=== PATIENT | male | born 1960 | race Two or more races ===

== ENCOUNTER 2025-08-09 14:58 | Emergency (ER) | payer MEDICAID, SELFPAY ==
[2025-08-09] VITALS (11 sets, daily range): BP systolic 103–172; BP diastolic 69–89; PULSE 105–152; RESP 16–35; TEMP 36.8–37.6; O2SAT 86–98; BMI 28.8
--- NOTE | 2025-08-09 15:10 | EKG_ITS ---
[facility] Test Date: 2025-08-09 Pat Name: JONATHAN HULL Department: Room: - Gender: Male Personal Development Mentor: : 1960 Requested By: Carmelina Bah Order Number: [id number] Reading MD: Carmelina Bah Measurements Intervals [place] Rate: 140 P: 68 SD: 160 QRS: 88 QRSD: 89 T: 57 QT: 277 QTc: 424 Interpretive Statements SINUS TACHYCARDIA, POSSIBLE ATRIAL FLUTTER POSSIBLE RIGHT VENTRICULAR CONDUCTION DELAY [RSR (QR) IN V1/V2] ABNORMAL RHYTHM ECG No previous ECG available for comparison /store/S0/[id number]
--- NOTE | 2025-08-09 15:10 | XR_ITS ---
EXAMINATION: AP chest single view TECHNIQUE: AP upright portable chest single view Date and time: August 09, 2025, 1519 hours INDICATIONS: Shortness of breath today. FINDINGS: Normal heart size Lungs are clear. Prominent osteopenia with old left-sided rib fractures IMPRESSION: No active disease
--- NOTE | 2025-08-09 15:11 | PD.EDSOB ---
ED SOB =RME/HPI General Chief Complaint: Shortness of Breath/Dyspnea Stated Complaint: SOB, WHEEZING X 1WK Time Seen by Provider: 08/09/25 15:07 Arrival date/time: 08/09/25 14:58 65-year-old male patient with significant history of asthma, came in for evaluation regarding worsening shortness of breath, wheezing, for the last 3 days. On my initial evaluation patient was noted to be satting 88% on room air. Patient also complained of nonproductive cough. Denies any fever denies any chest pain denies any other complaints no medication was taken prior to ER visit. Related Data Previous Rx's ?Medication ?Instructions ?Recorded albuterol sulfate 90 mcg/actuation 2 inh inhalation Q6H PRN shortness 08/09/25 aerosol inhaler of breath or wheezing #8.5 grams beclomethasone dipropionate 80 1 inh inhalation BID #10.6 grams 08/09/25 mcg/actuation HFA breath activated aerosol (Qvar RediHaler) ipratropium 0.5 mg-albuterol 3 mg 3 ml inhalation Q6H PRN shortness 08/09/25 (2.5 mg base)/3 mL nebulization of breath #180 mL soln prednisone 50 mg tablet 50 mg PO QDAY #7 tabs 08/09/25 Allergies Allergy/AdvReac Type Severity Reaction Status Date / Time No Known Allergies Allergy Verified 08/09/25 15:20 Review of Systems Review of Systems Narrative Review of Systems: Review of system reviewed and within normal limits except mentioned in HPI ED Exam Narrative Physical exam: VITAL SIGNS: Reviewed. GENERAL APPEARANCE: Alert and interactive, follows commands, no acute distress, HEAD AND FACE: Non-traumatic. ENT: PERRL, pink conjunctivitis, eyelid no trauma, Mucous membrane moist. NECK: Supple, nontender, no nuchal rigidity. CHEST: No tenderness, no crepitus, no paradoxical movement, no retractions. LUNGS: Symmetric, no rales, + wheezing, no ronchi, no stridor, decreased breath sounds bilaterally. HEART: Regular rate, regular rhythm, no murmur, no gallops. ABDOMEN: Soft, positive bowel sounds, nondistended, no guarding, nontender, no rebound, no masses, RECTAL: Deferred. GENITAL: Deferred. NEUROLOGICAL: Gross motor function intact sensory function intact, Appropriate for age. MUSCULOSKELETAL: low back nontender, full range of motion. EXTREMITIES: Nontender, full range of motion. SKIN: Color pink, dry, no rash, no lacerations, no abrasions, no contusions. LYMPHATICS: Deferred. Course Quality Measures none Orders Category Date Time Status EKG (ED ONLY) *Do not use* NOW Care 08/09/25 15:10 Completed EKG (ED Only) Stat Exams 08/09/25 15:10 Draft XR chest 1V Stat Exams 08/09/25 15:10 Completed B-Type Natriuretic Peptide Stat Lab 08/09/25 15:23 Completed Blood Culture (Lab) Stat Lab 08/09/25 15:23 Received CBC [CBC] Stat Lab 08/09/25 15:09 Completed Comprehensive Metabolic Panel Stat Lab 08/09/25 15:23 Completed Lactate (Lactic Acid) Stat Lab 08/09/25 15:23 Completed Partial Thromboplastin Time Stat Lab 08/09/25 15:23 Completed Procalcitonin Stat Lab 08/09/25 15:23 Completed Troponin I Stat Lab 08/09/25 15:23 Completed VBG [Venous Blood Gas] Stat Lab 08/09/25 15:23 Completed ALBUTEROL RT 0.5ml [Proventil Rt 0.5ml] Med 08/09/25 18:11 Discontinued 2.5 mg INH X1 ONE ALBUTEROL RT 3ml [Proventil Rt 3ml] Med 08/09/25 15:08 Discontinued 10 mg INH X1 ONE Acetaminophen Ivpb [Ofirmev Inj] Med 08/09/25 16:13 Discontinued 1,000 mg in 100 ml IV X1 Albuterol/Ipratr Rt Carley [Duoneb Rt Carley] Med 08/09/25 15:08 Discontinued 3 ml INH X1 ONE Magnesium Sulfate 2 GM Ivpb [Magnesium Sulfate Ivpb] Med 08/09/25 15:25 Discontinued 2 gm in 50 ml IV X1 Sodium Chloride Rt Carley 0.9% [NS Rt Carley 0.9%] Med 08/09/25 18:11 Active 3 ml INH PRN PRN dexAMETHasone INJ [Decadron Inj] Med 08/09/25 15:08 Discontinued 10 mg IVP X1 ONE Vital Signs Vital signs: Vital Signs Temperature 98.6 F 08/09/25 14:59 Pulse Rate 152 H 08/09/25 14:59 Respiratory Rate 25 H 08/09/25 14:59 Blood Pressure 124/87 H 08/09/25 14:59 Pulse Oximetry (%) 86 L 08/09/25 14:59 Oxygen Delivery Method Room Air 08/09/25 14:59 Shortness of Breath / Dyspnea MDM Narrative MDM Narrative:: 65-year-old male patient with significant history of asthma, came in for evaluation regarding worsening shortness of breath, wheezing, for the last 3 days. On my initial evaluation patient was noted to be satting 88% on room air. Patient also complained of nonproductive cough. Denies any fever denies any chest pain denies any other complaints no medication was taken prior to ER visit. EKG showed sinus tachycardia, ventricular to 139 bpm, no ST segment elevation or depression noted. Patient's laboratory workup showed slight leukocytosis of 11.1 CMP unremarkable except for a blood glucose of 264 patient is diabetic. Chest x-ray showed no acute pathology. Patient was given Tylenol, albuterol, Decadron, magnesium, with complete resolution of wheezing, patient was able to ambulate with no recurrence of shortness of breath. Currently satting 92% on room air. Patient was able to ambulate without any recurrence of shortness of breath. Patient's heart rate was noted to be 110 prior to discharge. He told me that he is ready to go home. Patient data External records reviewed:: None Clinical information provided by:: patient and family Social determinants that could affect healthcare access:: none Patient has the following chronic illnesses:: Asthma, diabetes mellitus How is presenting disease/condition affected by chronic disease/condition?: exacerbated by Evaluation data The following diagnostics were reviewed and interpreted by me:: lab results, radiology exam(s) and EKG tracing(s) Lab and/or radiology exams considered but not ordered:: None Interpretation Summary: See above Medications / Prescriptions Medications or Prescriptions considered but not ordered:: None Medication administrations:: Medication Administration History Sodium Chloride (Sodium Chloride Rt Carley 0.9% 3 Ml Nebu) 3 ml INH PRN PRN PRN Reason: SOLN Stop: 09/08/25 18:10 Last Admin: 08/09/25 19:54 Dose: 3 ml Documented By: RENY Discontinued Medications Albuterol (Albuterol Rt 2.5 Mg/3 Ml Nebu) 10 mg INH X1 ONE Stop: 08/09/25 15:09 Last Admin: 08/09/25 15:26 Dose: 10 mg Documented By: KAREN Albuterol (Albuterol Rt 2.5 Mg/0.5 Ml Nebu) 2.5 mg INH X1 ONE Stop: 08/09/25 18:12 Last Admin: 08/09/25 19:54 Dose: 2.5 mg Documented By: RENY Albuterol/Ipratropium (Albuterol/Ipratropium (Duoneb) Rt Carley 3 Ml Nebu) 3 ml INH X1 ONE Stop: 08/09/25 15:09 Last Admin: 08/09/25 15:26 Dose: 3 ml Documented By: KAREN Dexamethasone Sodium Phosphate (Dexamethasone Sod Phos Inj 10 Mg/Ml Vial) 10 mg IVP X1 ONE Stop: 08/09/25 15:09 Last Admin: 08/09/25 15:24 Dose: 10 mg Documented By: SHANE Magnesium Sulfate (Magnesium Sulfate Ivpb) 2 gm in 50 mls @ 25 mls/hr IV X1 ONE Stop: 08/09/25 17:24 Last Infusion: 08/09/25 19:27 Dose: Infused Documented By: Admin: 08/09/25 15:29 Dose: 25 mls/hr Documented By: SHANE Acetaminophen (Ofirmev Inj) 1,000 mg in 100 mls @ 250 mls/hr IV X1 ONE Stop: 08/09/25 16:36 Last Infusion: 08/09/25 19:27 Dose: Infused Documented By: Admin: 08/09/25 16:26 Dose: 250 mls/hr Documented By: SHANE See above Consultations Consultation(s) initiated? (list below): No Diagnosis Shortness of Breath Differential Diagnosis: acute exacerbation of chronic obstructive airways disease, community acquired pneumonia and asthma with exacerbation Most likely diagnosis given after review of the tests above:: Asthma exacerbation Admission Indicated Admission indicated?: not indicated Admission Request Was there a request for admission?: No Disposition Plan Disposition Plan: Discharge Discharge Attestation Discharge Attestation: The patient and all family members were given an opportunity to ask questions and understood the discharge instructions. Discharge instructions specifically effects, indications for sooner follow up or return to the emergency department, and the expected course of current diagnosis. Patient condition: Stable Discharge Plan Plan Patient Disposition: HOME (Self Care) Discharge Disposition comment: Stable Prescriptions/Referrals Prescriptions/Med Rec: New albuterol sulfate 90 mcg/actuation HFA aerosol inhaler 2 inh inhalation Q6H PRN (Reason: shortness of breath or wheezing) Qty: 8.5 0RF ipratropium-albuterol 0.5 mg-3 mg(2.5 mg base)/3 mL solution for nebulization 3 ml inhalation Q6H PRN (Reason: shortness of breath) Qty: 180 0RF prednisone 50 mg tablet 50 mg PO QDAY Qty: 7 0RF Qvar RediHaler 80 mcg/actuation HFA aerosol breath activated 1 inh inhalation BID Qty: 10.6 0RF Rx Instructions: administer with spacer Referrals: Gaby Begum PA-C [Primary Care Provider] - In 1 week Problem List Clinical Impression: Asthma with exacerbation Patient/Caregiver Discharge Instructions Discharge Activity: activity as tolerated Education Materials: Asthma Action Plan Additional Instructions: Thank you for the opportunity for serving you today. You are stable for discharged . You are advised to: Follow-up with your PCP in 1 to 2 days Return to ED for worsening of symptoms Increase oral fluids Take medication as prescribed Print Language: Citizen Of [place] Stand Alone Forms: Glenda Award Info., Patient Portal Info Letter
[2025-08-09] MEDS: ALBUTEROL RT 2.5 MG/3 ML NEBU 10 MG INH (15:26)
[2025-08-09] MEDS: ALBUTEROL/IPRATROPIUM (Duoneb) RT SOL 3 ML NEBU INH (15:26)
[2025-08-09] MEDS: Magnesium Sulfate 2 GM Ivpb 2 GM/50 ML BAG IV (15:29)
[2025-08-09 15:40] LABS: Base Excess, Venous 0 (-3-3); Lactate (Lactic Acid) 1.7 mMol/L (0.4-2.0); O2 Saturation, Venous 98 % (96-97); PCO2, Venous 51 mmHg (36-56); PO2, Venous 94 mmHg (15-58); pH, Venous 7.33 (7.33-7.66)
--- NOTE | 2025-08-09 15:44 | PC.NURSE ---
PATIENT CAME IN TO ED FOR SHORTNESS OF BREATH. PATIENT CAME IN THROUGH FRONT LOBBY. PATIENT WAS SATURATING 87% ON ROOM AIR AND RESPIRATIONS IN THE 30S. PATIENT'S FAMILY AT BEDSIDE STATES PATIENT JUST GOT BACK FROM [place]. PATIENT HAS BEEN SICK FOR THE PAST COUPLE OF DAYS. PATIENT WAS VERY WHEEZY ON ARRIVAL. PATIENT PLACED ON 15L OXYMASK. RT ARANA AT BEDSIDE PLACED PATIENT ON ORDERED BREATHING TREATMENT. PATIENT'S HEART RATE IN 140S. [facility] AND DR. GAO AT BEDSIDE.
[2025-08-09 15:47] LABS: Basophils # (Auto) 0.1 Thou/mm3 (0.0-0.2); Basophils % (Auto) 1 % (0-2.5); Eosinophils # (Auto) 0.1 Thou/mm3 (0.0-0.5); Eosinophils % (Auto) 1 % (0-10); Hematocrit 40.5 % (41.0-53.0); Hemoglobin 13.6 g/dL (13.5-16.0); Immature Granulocytes Auto 0.04 Thou/mm3 (0.00-0.00); Lymphocytes # (Auto) 0.9 Thou/mm3 (1.0-4.8); Lymphocytes % (Auto) 8 % (10-50); Mean Corpuscular HGB Conc 33.6 g/dl (31.0-37.0); Mean Corpuscular Hemoglobin 28.8 pg (25.0-35.0); Mean Corpuscular Volume 86 fL (80-100); Monocytes # (Auto) 1.0 Thou/mm3 (0.0-0.8); Monocytes % (Auto) 9 % (0-12); Neutrophils # (Auto) 8.9 Thou/mm3 (1.8-7.7); Neutrophils % (Auto) 80 % (37-80); Nucleated Red Blood Cell # 0.00 Thou/mm3 (0.00-0.00); Nucleated Red Blood Cell % 0 /100 WBC (0); Platelet Count 305 Thou/mm3 (140-440); RDW Standard Deviation 45.1 fL (35.1-43.9); Red Blood Count 4.73 Miln/mm3 (4.50-5.90); White Blood Count 11.1 Thou/mm3 (3.8-10.6)
--- NOTE | 2025-08-09 15:48 | PC.NURSE ---
PATIENT CURRENTLY 98% ON NEBULIZER TREATMENT. PATIENT STATES HE IS FEELING A LITTLE BIT BETTER. PATIENT RESPIRATIONS 25. PATIENT MADE AWARE OF PLAN OF CARE.
[2025-08-09 15:58] LABS: Partial Thromboplastin Time 26.2 Seconds (22.0-36.0)
[2025-08-09 16:19] LABS: Alanine Aminotransferase 13 U/L (10-49); Albumin, Serum 4.8 gm/dL (3.4-4.8); Albumin/Globulin Ratio 1.3 (1.2-2.2); Alkaline Phosphatase 90 U/L (46-116); Anion Gap 12 (7-16); Aspartate Amino Transferase 19 U/L (0-34); BUN/Creatinine Ratio 20 Ratio (12-20); Bilirubin,Total 0.7 mg/dL (0.3-1.2); Blood Urea Nitrogen 16 mg/dL (9-23); Calcium 9.7 mg/dL (8.3-10.6); Calcium (Corrected) 9.7 mg/dL (8.5-10.1); Carbon Dioxide 24.3 mMol/L (20.0-31.0); Chloride 100 mMol/L (98-107); Creatinine (Component) 0.8 mg/dL (0.6-1.3); Estimated Creatinine Clearance 100.9 mL/min (>60); Globulin 3.6 gm/dL (2.3-3.5); Glucose 264 mg/dL (74-106); Osmolality,Calculated 282 (275-295); Potassium 4.2 mMol/L (3.4-5.1); Procalcitonin 0.17 ng/ml (0.0-0.49); Sodium 136 mMol/L (136-145); Total Protein 8.4 gm/dL (5.7-8.2); Troponin I 0.041 ng/mL (0.0-0.045); eGFR > 60 See Note
[2025-08-09 16:23] LABS: B-Type Natriuretic Peptide < 20 pg/mL (0-100)
[2025-08-09] MEDS: ACETAMINOPHEN IVPB 1,000 MG/100 ML VIAL 250 MG IV (16:26)
[2025-08-09] MEDS: SODIUM CHLORIDE RT SOL 0.9% 3 ML NEBU INH (19:54)
[2025-08-09] MEDS: ALBUTEROL RT 2.5 MG/0.5 ML NEBU INH (19:54)
== END 2025-08-09 20:25 | disposition home or self-care (01) ==
PROVIDERS: Nurse Practitioner Family; Emergency Provider Family Medicine; PCP Physician Assistant Medical
DX: J45.901 Unspecified asthma with (acute) exacerbation (principal); R00.0 Tachycardia, unspecified
CPT/HCPCS: 36415; 71045; 80053; 82803; 83605; 83880; 84145; 84484; 85025; 85730; 87040; 93005; 94640; 94644; 96365; 96366; 99284; A9270; J0131; J1100; J3475; J7611

== ENCOUNTER 2025-08-10 06:47 | Inpatient (IN) | payer MEDICAID, SELFPAY ==
[2025-08-10] VITALS (15 sets, daily range): BP systolic 113–130; BP diastolic 74–92; PULSE 103–124; RESP 17–28; TEMP 36.6–36.9; O2SAT 93–100; BMI 24.3
--- NOTE | 2025-08-10 07:26 | EKG_ITS ---
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
--- NOTE | 2025-08-10 07:26 | XR_ITS ---
EXAMINATION: PA lateral chest 2 views TECHNIQUE: Upright PA lateral chest 2 views Date and time: August 10, 2025, 0748 hours INDICATIONS: Chest pain shortness of breath beginning 3 weeks ago FINDINGS: Normal heart size Minor scarring in the right upper lung zone No pneumonia or pulmonary edema Moderate thoracic spondylosis IMPRESSION: No pneumonia or pulmonary edema
[2025-08-10] MEDS: ALBUTEROL/IPRATROPIUM (Duoneb) RT SOL 3 ML NEBU INH ×4 (08:20→23:04)
--- NOTE | 2025-08-10 08:31 | PD.EDRME ---
Rapid Medical Screening Exam [facility] Arrival date/time: 08/10/25 06:47 This is a 65-year-old male with a history of asthma per patient. Patient was seen here yesterday for the same problem. Patient complains of shortness of breath and wheezing. Patient does have a history of diabetes. Patient's chest x-ray yesterday was unremarkable. I have greeted and performed a focused initial assessment of this patient. Initial appropriate labs ordered at this time. A comprehensive ED assessment and evaluation of the patient and analysis of all test and completion of medical decision making process will be conducted by additional ED provider. Chief Complaint: Shortness of Breath/Dyspnea Time Seen by Provider: 08/10/25 07:05 Vital signs: Vital Signs Temperature 98.4 F 08/10/25 06:54 Pulse Rate 120 H 08/10/25 06:54 Respiratory Rate 26 H 08/10/25 06:54 Blood Pressure 124/80 08/10/25 06:54 Pulse Oximetry (%) 93 L 08/10/25 06:54 Oxygen Delivery Method Room Air 08/10/25 06:54 Exam: Wheezing throughout lung kapoor, skin warm and dry Clinical Impression: Shortness of breath
[2025-08-10] MEDS: MethylPREDNISolone SOD SUCC 62.5 MG/ML 2ML VIAL 60 MG IM (08:36)
[2025-08-10 09:11] LABS: Lactate (Lactic Acid) 1.7 mMol/L (0.4-2.0)
[2025-08-10 09:21] LABS: Basophils # (Auto) 0.0 Thou/mm3 (0.0-0.2); Basophils % (Auto) 0 % (0-2.5); Eosinophils # (Auto) 0.0 Thou/mm3 (0.0-0.5); Eosinophils % (Auto) 0 % (0-10); Hematocrit 38.5 % (41.0-53.0); Hemoglobin 13.2 g/dL (13.5-16.0); Immature Granulocytes Auto 0.02 Thou/mm3 (0.00-0.00); Lymphocytes # (Auto) 0.9 Thou/mm3 (1.0-4.8); Lymphocytes % (Auto) 9 % (10-50); Mean Corpuscular HGB Conc 34.3 g/dl (31.0-37.0); Mean Corpuscular Hemoglobin 28.9 pg (25.0-35.0); Mean Corpuscular Volume 84 fL (80-100); Monocytes # (Auto) 1.1 Thou/mm3 (0.0-0.8); Monocytes % (Auto) 10 % (0-12); Neutrophils # (Auto) 8.7 Thou/mm3 (1.8-7.7); Neutrophils % (Auto) 81 % (37-80); Nucleated Red Blood Cell # 0.00 Thou/mm3 (0.00-0.00); Nucleated Red Blood Cell % 0 /100 WBC (0); Platelet Count 293 Thou/mm3 (140-440); RDW Standard Deviation 45.1 fL (35.1-43.9); Red Blood Count 4.56 Miln/mm3 (4.50-5.90); White Blood Count 10.8 Thou/mm3 (3.8-10.6)
[2025-08-10 09:33] LABS: B-Type Natriuretic Peptide 34 pg/mL (0-100)
[2025-08-10 09:40] LABS: Alanine Aminotransferase 12 U/L (10-49); Albumin, Serum 4.9 gm/dL (3.4-4.8); Albumin/Globulin Ratio 1.4 (1.2-2.2); Alkaline Phosphatase 83 U/L (46-116); Anion Gap 11 (7-16); Aspartate Amino Transferase 18 U/L (0-34); BUN/Creatinine Ratio 28 Ratio (12-20); Bilirubin,Total 0.8 mg/dL (0.3-1.2); Blood Urea Nitrogen 28 mg/dL (9-23); Calcium 10.2 mg/dL (8.3-10.6); Calcium (Corrected) 10.2 mg/dL (8.5-10.1); Carbon Dioxide 26.0 mMol/L (20.0-31.0); Chloride 101 mMol/L (98-107); Creatinine (Component) 1.0 mg/dL (0.6-1.3); Estimated Creatinine Clearance 73.2 mL/min (>60); Globulin 3.5 gm/dL (2.3-3.5); Glucose 151 mg/dL (74-106); Osmolality,Calculated 284 (275-295); Potassium 4.5 mMol/L (3.4-5.1); Procalcitonin 0.92 ng/ml (0.0-0.49); Sodium 138 mMol/L (136-145); Total Protein 8.4 gm/dL (5.7-8.2); Troponin I 0.041 ng/mL (0.0-0.045); eGFR > 60 See Note
--- NOTE | 2025-08-10 10:03 | PC.NURSE ---
brother Tevin Somersza provided contact information. pt stated to notify brother for transportation or if information is needed
[2025-08-10] MEDS: IPRATROPIUM RT 0.5 MG/ 2.5 ML NEBU INH (11:04)
[2025-08-10] MEDS: ALBUTEROL RT 2.5 MG/3 ML NEBU 7.5 MG INH (11:04)
[2025-08-10] MEDS: ACETAMINOPHEN IVPB 1,000 MG/100 ML VIAL 250 MG IV (12:46)
[2025-08-10] MEDS: Magnesium Sulfate 2 GM Ivpb 2 GM/50 ML BAG IV (12:57)
--- NOTE | 2025-08-10 13:12 | PD.EDSOB ---
ED SOB =RME/HPI General Chief Complaint: Shortness of Breath/Dyspnea Stated Complaint: SOB Time Seen by Provider: 08/10/25 07:05 Arrival date/time: 08/10/25 06:47 RME / HPI RME / HPI Narrative: 08/10/25 06:47 This is a 65-year-old male with a history of asthma per patient. Patient was seen here yesterday for the same problem. Patient complains of shortness of breath and wheezing. Patient does have a history of diabetes. Patient's chest x-ray yesterday was unremarkable. I have greeted and performed a focused initial assessment of this patient. Initial appropriate labs ordered at this time. A comprehensive ED assessment and evaluation of the patient and analysis of all test and completion of medical decision making process will be conducted by additional ED provider. DR. GAO MAIN ED EVALUATION 65 year old male with history of diabetes and asthma presents to the ED for worsening shortness of breath. Reportedly was evaluated here for similar symptoms and had improved after treatments here. States he was discharged home. However, during the night began feeling short of breath accompanied by wheezing, prompting return to ED. Denies fevers, chills, chest pain, abdominal pain, n/v. Exam: Wheezing throughout lung kapoor, skin warm and dry Impression: Shortness of breath Related Data Previous Rx's ?Medication ?Instructions ?Recorded albuterol sulfate 90 mcg/actuation 2 inh inhalation Q6H PRN shortness 08/09/25 aerosol inhaler of breath or wheezing #8.5 grams beclomethasone dipropionate 80 1 inh inhalation BID #10.6 grams 08/09/25 mcg/actuation HFA breath activated aerosol (Qvar RediHaler) ipratropium 0.5 mg-albuterol 3 mg 3 ml inhalation Q6H PRN shortness 08/09/25 (2.5 mg base)/3 mL nebulization of breath #180 mL soln prednisone 50 mg tablet 50 mg PO QDAY #7 tabs 08/09/25 Allergies Allergy/AdvReac Type Severity Reaction Status Date / Time No Known Allergies Allergy Verified 08/10/25 06:48 Review of Systems Review of Systems Systems Reviewed: All systems reviewed, normal except as documented Past Medical History Past Medical History CARDIAC: Positive Hypercholesterolemia and Hypertension RESPIRATORY: Positive Asthma ENDOCRINE: Positive Diabetes Mellitus Type 2 and Hypothyroidism Social History SMOKING STATUS: Never smoker Course Course Course Narrative: 0905h: I spoke with hospitalist team for admission. They are requesting all labs to be resulted prior to admission. 1300h: I spoke with hospitalist team for admission. Discussed patients PMHx, HPI, ED course, exam findings, labs, and radiology results. The hospitalist agree to accept the patient for admission. Quality Measures none Orders Category Date Time Status Bedside COVID-19 Antigen Test NOW Care 08/10/25 07:28 Completed Bedside COVID-19 Antigen Test NOW Care 08/10/25 09:07 Active Bedside Influenza A&B Antigen Test NOW Care 08/10/25 07:29 Completed Bedside Influenza A&B Antigen Test NOW Care 08/10/25 09:07 Completed Bedside RSV Test NOW Care 08/10/25 09:07 Completed COVID-19 Screening Questionnaire NOW Care 08/10/25 09:05 Active Social Media Senior Associate Q4H START 00 Care 08/10/25 08:29 Active Decision to Admit X1 Care 08/10/25 09:05 Completed EKG (ED ONLY) *Do not use* NOW Care 08/10/25 07:27 Completed EKG (ED Only) Stat Exams 08/10/25 07:26 Draft XR chest 2V Stat Exams 08/10/25 07:26 Completed BNP [B-Type Natriuretic Peptide] Stat Lab 08/10/25 08:56 Completed CBC Stat Lab 08/10/25 08:56 Completed Comprehensive Metabolic Panel Stat Lab 08/10/25 08:56 Completed Lactate (Lactic Acid) Stat Lab 08/10/25 08:56 Completed Procalcitonin Stat Lab 08/10/25 08:56 Completed Troponin I Stat Lab 08/10/25 08:56 Completed ALBUTEROL RT 3ml [Proventil Rt 3ml] Med 08/10/25 08:50 Discontinued 7.5 mg INH X1 ONE Acetaminophen Ivpb [Ofirmev Inj] Med 08/10/25 08:49 Discontinued 1,000 mg in 100 ml IV NOW Albuterol/Ipratr Rt Carley [Duoneb Rt Carley] Med 08/10/25 07:25 Discontinued 3 ml INH X1 ONE Ipratropium [place] Rt Carley [Atrovent Rt Carley] Med 08/10/25 08:50 Discontinued 0.5 mg INH X1 ONE Magnesium Sulfate 2 GM Ivpb [Magnesium Sulfate Ivpb] Med 08/10/25 08:50 Discontinued 2 gm in 50 ml IV X1 MethylPREDNISolone.* [SoluMEDROL Inj] Med 08/10/25 07:25 Discontinued 60 mg IM X1 ONE Vital Signs Vital signs: Vital Signs Temperature 98.4 F 08/10/25 06:54 Pulse Rate 120 H 08/10/25 06:54 Respiratory Rate 26 H 08/10/25 06:54 Blood Pressure 124/80 08/10/25 06:54 Pulse Oximetry (%) 93 L 08/10/25 06:54 Oxygen Delivery Method Room Air 08/10/25 06:54 Pulse ox is 93% on room air which is adequate. Shortness of Breath / Dyspnea Patient data External records reviewed:: [facility] previous records Clinical information provided by:: patient Social determinants that could affect healthcare access:: none Patient has the following chronic illnesses:: Asthma, diabetes How is presenting disease/condition affected by chronic disease/condition?: exacerbated by Evaluation data The following diagnostics were reviewed and interpreted by me:: lab results, radiology exam(s) and EKG tracing(s) Lab and/or radiology exams considered but not ordered:: None Interpretation Summary: Ordering Physician: Vi Rodriguez NP Date of Service: 08/10/25 Procedure(s): XR chest 2V Accession Number(s): [id number] cc: Michele Montano MD; Vi Rodriguez NP~ EXAMINATION: PA lateral chest 2 views TECHNIQUE: Upright PA lateral chest 2 views Date and time: August 10, 2025, 0748 hours INDICATIONS: Chest pain shortness of breath beginning 3 weeks ago FINDINGS: Normal heart size Minor scarring in the right upper lung zone No pneumonia or pulmonary edema Moderate thoracic spondylosis IMPRESSION: No pneumonia or pulmonary edema Dictated By: Michele Montano MD Signed By: <Electronically signed by Michele Montano MD in OV> 08/10/25 0835 Medications / Prescriptions Medications or Prescriptions considered but not ordered:: None Medication administrations:: Medication Administration History Acetaminophen (Acetaminophen 325 Mg Tablet) 650 mg PO Q6H PRN PRN Reason: Fever >100.4 or pain Stop: 09/09/25 14:20 Albuterol/Ipratropium (Albuterol/Ipratropium (Duoneb) Rt Carley 3 Ml Nebu) 3 ml INH Q4HRRT ERNESTO Stop: 09/09/25 14:59 Last Admin: 08/10/25 18:05 Dose: 3 ml Documented By: Admin: 08/10/25 16:59 Dose: 3 ml Documented By: LEONARD Albuterol/Ipratropium (Albuterol/Ipratropium (Duoneb) Rt Carley 3 Ml Nebu) 3 ml INH Q2HR PRN PRN Reason: SHORTNESS OF BREATH OR WHEEZE Stop: 09/09/25 14:20 Dextrose (Dextrose 50%-Water Inj 50 Ml Syringe) 25 ml IV Q15MIN PRN PRN Reason: BG 50-70 responsive npo pt Stop: 09/09/25 14:26 Dextrose (Dextrose 50%-Water Inj 50 Ml Syringe) 50 ml IV Q15MIN PRN PRN Reason: BG <50 OR BG <70 & pt unresponsive Stop: 09/09/25 14:26 Glucagon (Glucagon Inj 1 Mg Vial) 1 mg IM Q15MIN PRN PRN Reason: BG <70, and no IV access Heparin Sodium (Porcine) (Heparin Sod Inj 5000 Unit/Ml Vial) 5,000 unit SC Q8HR [facility] Stop: 08/24/25 21:59 Insulin Human Lispro (Insulin Lispro (Admelog) 1 Unit/0.01 Ml Unit) [address] [facility]; Protocol Stop: 09/09/25 16:59 Last Admin: 08/10/25 17:43 Dose: 3 unit Documented By: EMERSON Co-signed By: MALI Levothyroxine Sodium (Levothyroxine Sodium 25 Mcg Tablet) 75 mcg PO ACBR [facility] Stop: 09/10/25 05:59 Losartan Potassium (Losartan Potassium 25 Mg Tablet) 25 mg PO QDAY [facility] Stop: 09/10/25 08:59 Ondansetron HCl (Ondansetron Inj 2 Mg/Ml Inj 2 Ml) 4 mg IVP Q6H PRN; Protocol PRN Reason: NAUSEA OR VOMITING Stop: 09/09/25 14:20 Prednisone (Prednisone 20 Mg Tablet) 40 mg PO QDAY [facility] Stop: 08/17/25 14:26 Sennosides (Senna Tablet) 1 tab PO QDAY PRN; Protocol PRN Reason: constipation Stop: 09/09/25 14:20 Discontinued Medications Albuterol (Albuterol Rt 2.5 Mg/3 Ml Nebu) 7.5 mg INH X1 ONE Stop: 08/10/25 08:51 Last Admin: 08/10/25 11:04 Dose: 7.5 mg Documented By: LEONARD Albuterol/Ipratropium (Albuterol/Ipratropium (Duoneb) Rt Carley 3 Ml Nebu) 3 ml INH X1 ONE Stop: 08/10/25 07:26 Last Admin: 08/10/25 08:20 Dose: 3 ml Documented By: LEONARD Acetaminophen (Ofirmev Inj) 1,000 mg in 100 mls @ 250 mls/hr IV NOW ONE Stop: 08/10/25 09:12 Last Infusion: 08/10/25 15:53 Dose: Infused Documented By: Admin: 08/10/25 12:46 Dose: 250 mls/hr Documented By: VASHTI Magnesium Sulfate (Magnesium Sulfate Ivpb) 2 gm in 50 mls @ 25 mls/hr IV X1 ONE Stop: 08/10/25 10:49 Last Infusion: 08/10/25 15:53 Dose: Infused Documented By: Admin: 08/10/25 12:57 Dose: 25 mls/hr Documented By: VASHTI Ipratropium [place] (Ipratropium Rt 0.5 Mg/ 2.5 Ml Nebu) 0.5 mg INH X1 ONE Stop: 08/10/25 08:51 Last Admin: 08/10/25 11:04 Dose: 0.5 mg Documented By: LEONARD Methylprednisolone Sodium Succinate (Methylprednisolone Sod Succ 62.5 Mg/Ml 2ml Vial) 60 mg IM X1 ONE Stop: 08/10/25 07:26 Last Admin: 08/10/25 08:36 Dose: 60 mg Documented By: VL See above Consultations Consultation(s) initiated? (list below): Yes Consultation #1 (Physician, Specialty, Details): See above Diagnosis Shortness of Breath Differential Diagnosis: acute exacerbation of chronic obstructive airways disease, congestive heart failure, community acquired pneumonia and asthma with exacerbation Most likely diagnosis given after review of the tests above:: Acute asthma exacerbation Admission Indicated Admission indicated?: indicated Admission Request Was there a request for admission?: Yes Admission Attestation Admission request attestation: Discussed case with [] from Hospitalist service regarding admission. Discussed patients ED course, exam findings, labs, and radiology results. The Hospitalist [agrees,declines] to accept the patient for admission. Disposition Plan Disposition Plan: Admit Discharge Plan Plan Patient Disposition: Admit Acute Care w/in Hospital Problem List Clinical Impression: Asthma with exacerbation
--- NOTE | 2025-08-10 14:30 | ESHP_ITS ---
<Statement entered by Ethan Vasquez MD - 08/10/25 22:30> I saw and examined patient personally and supervised PGY 1 resident, Dr. Winslow with formulating a management plan. I agree with the documentation with the exceptions as listed below. Patient presented with progressively worsening wheezing and shortness of breath on minimal activity for the past week since returning from a trip to [place]. Patient attributes this to the drop in temperature. He said that 3 days ago on 08/07 he visited his primary doctor who prescribed a nebulizer machine, prednisone and a course of antibiotics [cannot remember the name]. At home he was having to use his nebulizer machine every hour without any relief. This prompted his ED visit today. He also presented on 08/09 but was discharged home after receiving DuoNebs, dexamethasone, acetaminophen IV and magnesium sulfate. Patient currently admitted for acute respiratory failure with hypoxia secondary to asthma exacerbation. On treatment with ceftriaxone, azithromycin IV and prednisone 40 mg daily. Also on DuoNebs Q6 hourly along with Pulmicort 0.25 mg twice daily. Once patient condition improves and oxygen weaned anticipate discharge within next 24 to 48 hours. Plan of care discussed with Attending Dr. Kyler Vasquez MD PGY 2 Disclaimer: This note was dictated by speech recognition. Minor errors in bilingual student tutor may be present due to voice recognition software. Documentation for date of: 08/10/25 HPI History of Present Illness Chief complaint: AHRF 2/2 asthma exacerbation History of present illness: Matt Perry 65M pmhx significant for NIDDM2, HTN, hypothyroidism and asthma who presents with shortness of breath for a week now. Patient recently returned from [place] 08/04 (where he frequents for 2 to 3 months at a time), and states that due to the very cold temperature his asthma has been worsening. He had tried his albuterol inhaler about 2 times a day without relief. Previously took Qvar however has been inconsistent has not taken for quite some time now. Does not use oxygen at baseline and usually asthma is controlled as such symptoms never happened in [place]. Denies any sick contacts, fever/chills, nausea vomiting, chest pain or productive sputum. Patient does have a cough however states that it is his baseline. Denies orthopnea, PND or bilateral leg swelling. Patient does endorse occasional left leg swelling due to sciatica. PMHx: as above Surgical Hx: none FHx: none Social Hx: denies tobacco, alcohol or recreational/illicit drug use Allergies: NKDA Medications: Glipizide 10 mg daily, levothyroxine 75 mcg daily, losartan 25 mg daily, 1 more he does not remember the name In ED, BP 124/80, HR 120, RR 26, afebrile, satting 86L RA, significant labs include WBC 10.8, hemoglobin 13.2, BUN 28, Pro-Shai 0.92. COVID, influenza A and B negative. In ED, given DuoNeb x 1, Methylpred 60 mg IM x 1, albuterol 7.5 mg x 1, ipratropium bromide 0.5 mg x 1 Tylenol 1 g x 1 and mag 2g x1. CXR negative for PNA, EKG sinus tachycardia rate 110 QTc 412. Patient was admitted for asthma exacerbation. Review of Systems Review of Systems Systems Reviewed: All systems reviewed, normal except as documented Exam Vital Signs Temp Pulse Resp BP Pulse Ox O2 Del Method O2 Flow Rate 98.5 F 124 H 22 H 114/74 98 Nasal Cannula 2 08/10/25 10:18 08/10/25 11:05 08/10/25 11:05 08/10/25 10:18 08/10/25 11:05 08/10/25 10:18 08/10/25 11:05 Narrative Exam GENERAL: AOx3, no acute distress, Malay speaking HEENT: mucous membranes moist, bilateral sclera anicteric CARDIOVASCULAR: regular rhythm, tachycardic, S1/S2 present, no murmurs appreciated PULMONARY: significant inspiratory and expiratory wheezes bilaterally ABDOMINAL: soft, non-tender, non-distended, no rebound/guarding, bowel sounds present EXTREMITIES: no peripheral edema SKIN: warm and dry, intact, no rashes NEURO: CN II-XII grossly intact, no focal deficits, alert, following commands Results: Labs 08/10/25 08:56 08/10/25 08:56 Labs: Short CBC 08/10/25 Range/Units 08:56 WBC 10.8 H (3.8-10.6) Thou/mm3 Hgb 13.2 L (13.5-16.0) g/dL Hct 38.5 L (41.0-53.0) % Plt Count 293 (140-440) Thou/mm3 [facility] 08/10/25 08:56 Sodium 138 Potassium 4.5 Chloride 101 Carbon Dioxide 26.0 BUN 28 H Creatinine 1.0 Glucose 151 H D Calcium 10.2 Cardiac Enzymes 08/10/25 Range/Units 08:56 Troponin I 0.041 (0.0-0.045) ng/mL Liver Function 08/10/25 Range/Units 08:56 Total Bilirubin 0.8 (0.3-1.2) mg/dL AST 18 (0-34) U/L ALT 12 (10-49) U/L Alkaline Phosphatase 83 (46-116) U/L Albumin 4.9 H (3.4-4.8) gm/dL Quality Measures Quality Measures VTE prophylaxis Medications Home Medications and Allergies Allergies Allergy/AdvReac Type Severity Reaction Status Date / Time No Known Allergies Allergy Verified 08/10/25 06:48 Visit Medications Acetaminophen (Acetaminophen 325 Mg Tablet) 650 mg PO Q6H PRN PRN Reason: Fever >100.4 or pain Stop: 09/09/25 14:20 Albuterol/Ipratropium (Albuterol/Ipratropium (Duoneb) Rt Carley 3 Ml Nebu) 3 ml INH Q4HRRT ANGI Stop: 09/09/25 14:59 Albuterol/Ipratropium (Albuterol/Ipratropium (Duoneb) Rt Carley 3 Ml Nebu) 3 ml INH Q2HR PRN PRN Reason: SHORTNESS OF BREATH OR WHEEZE Stop: 09/09/25 14:20 Dextrose (Dextrose 50%-Water Inj 50 Ml Syringe) 25 ml IV Q15MIN PRN PRN Reason: BG 50-70 responsive npo pt Stop: 09/09/25 14:26 Dextrose (Dextrose 50%-Water Inj 50 Ml Syringe) 50 ml IV Q15MIN PRN PRN Reason: BG <50 OR BG <70 & pt unresponsive Stop: 09/09/25 14:26 Glucagon (Glucagon Inj 1 Mg Vial) 1 mg IM Q15MIN PRN PRN Reason: BG <70, and no IV access Heparin Sodium (Porcine) (Heparin Sod Inj 5000 Unit/Ml Vial) 5,000 unit SC Q8HR ANGI Stop: 08/24/25 21:59 Insulin Human Lispro (Insulin Lispro (Admelog) 1 Unit/0.01 Ml Unit) 0 unit SC AC [facility]; Protocol Stop: 09/09/25 16:59 Levothyroxine Sodium (Levothyroxine Sodium 88 Mcg Tablet) 75 mcg PO ACBR [facility] Stop: 09/10/25 05:59 Losartan Potassium (Losartan Potassium 25 Mg Tablet) 25 mg PO QDAY [facility] Stop: 09/10/25 08:59 Ondansetron HCl (Ondansetron Inj 2 Mg/Ml Inj 2 Ml) 4 mg IVP Q6H PRN; Protocol PRN Reason: NAUSEA OR VOMITING Stop: 09/09/25 14:20 Prednisone (Prednisone 20 Mg Tablet) 40 mg PO QDAY [facility] Stop: 08/17/25 14:26 Sennosides (Senna Tablet) 1 tab PO QDAY PRN; Protocol PRN Reason: constipation Stop: 09/09/25 14:20 Discontinued Medications Albuterol (Albuterol Rt 2.5 Mg/3 Ml Nebu) 7.5 mg INH X1 ONE Stop: 08/10/25 08:51 Last Admin: 08/10/25 11:04 Dose: 7.5 mg Albuterol/Ipratropium (Albuterol/Ipratropium (Duoneb) Rt Carley 3 Ml Nebu) 3 ml INH X1 ONE Stop: 08/10/25 07:26 Last Admin: 08/10/25 08:20 Dose: 3 ml Acetaminophen (Ofirmev Inj) 1,000 mg in 100 mls @ 250 mls/hr IV NOW ONE Stop: 08/10/25 09:12 Last Admin: 08/10/25 12:46 Dose: 250 mls/hr Magnesium Sulfate (Magnesium Sulfate Ivpb) 2 gm in 50 mls @ 25 mls/hr IV X1 ONE Stop: 08/10/25 10:49 Last Admin: 08/10/25 12:57 Dose: 25 mls/hr Ipratropium [place] (Ipratropium Rt 0.5 Mg/ 2.5 Ml Nebu) 0.5 mg INH X1 ONE Stop: 08/10/25 08:51 Last Admin: 08/10/25 11:04 Dose: 0.5 mg Methylprednisolone Sodium Succinate (Methylprednisolone Sod Succ 62.5 Mg/Ml 2ml Vial) 60 mg IM X1 ONE Stop: 08/10/25 07:26 Last Admin: 08/10/25 08:36 Dose: 60 mg Assessment & Plan Plan Matt Orlando 65M pmhx significant for NIDDM2, HTN, hypothyroidism and asthma who presents to [facility] ED on 08/10 for 1 week of shortness of breath, admitted for acute asthma exacerbation. #Acute hypoxic respiratory failure 2/2 #Acute asthma exacerbation Ddx: asthma exacerbation, CAP, URI Since returning from [place] on 08/04, has had 1 week of asthma exacerbation due to the cold not alleviated by frequent albuterol administrations as well as nebulization. Previously took Qvar however not consistent. On admission, significant wheezes bilaterally. Procal 0.92. CXR neg for PNA. Plan: - DuoNeb q4h angi and q2h prn - Azithromycin 500 mg QD and ceftriaxone 1 g QD (08/10- - Prednisone 40 mg QD - Supplemental O2 as needed to keep SpO2 above 90%, wean down as tolerated #NIDDM2 No a1c on file and patient takes glipizide 10 mg QD. Plan: - SSI step 1 - CTM glucose as patient is on steroids as well #Hx of HTN Takes losartan 25 mg QD Plan: - Resume home losartan 25 mg QD #Hypothyroidism Levothyroxine 75 mcg at home. Plan: - Resume home levothyroxine 75 mcg QD. Hospital management: Lines: PIV Diet: Carb consistent Bowel: Senna prn GI prophylaxis: IV pantop 40 mg QD DVT prophylaxis: heparin 5000u q8h Disposition: tele, tx of asthma exacerbation CODE STATUS: FULL CODE Plan of care discussed with attending Dr. Chávez, and PGY-2 Dr. Vasquez. Hiral Winslow, DO PGY-1 Internal Medicine Attending Provider Attestation/Addendum I have seen and examined the patient. I was physically present for the ivey portions of the services provided including history, physical exam, diagnosis, treatment plans and orders. I agree with assessment and plan of care as documented by residents. After examination of the patient and review of the clinical data I feel that this patient needs admission to the hospital for further treatment/evaluation. Even though this this note was carefully revised there may still be minor errors in bilingual student tutor due to voice recognition software. Kyung Chávez MD
[2025-08-10] MEDS: INSULIN LISPRO (AdmeLOG) 1 UNIT/0.01 ML UNIT SC (17:43)
[2025-08-10] MEDS: cefTRIAXone/D5w 1gm IV premix 1 GM/50 ML BAG IV (18:34)
[2025-08-10] MEDS: AZITHROMYCIN INJ 500 MG in SODIUM CHLORIDE 0.9% 250 ML 250 ML 250 MG IV (19:38)
--- NOTE | 2025-08-10 21:20 | PC.NURSE ---
SBAR to Brianna RN, Pt will go up to tele
[2025-08-10] MEDS: HEPARIN SOD INJ 5000 UNIT/ML VIAL SC (22:02)
[2025-08-10 22:18] LABS: Respiratory Syncytial Virus Ag Negative (Negative)
[2025-08-11] VITALS (15 sets, daily range): BP systolic 95–123; BP diastolic 65–81; PULSE 75–120; RESP 16–20; TEMP 19.4–36.8; O2SAT 92–99; BMI 29.9
[2025-08-11] MEDS: ALBUTEROL/IPRATROPIUM (Duoneb) RT SOL 3 ML NEBU INH ×5 (02:21→23:32)
[2025-08-11] MEDS: LEVOTHYROXINE SODIUM 25 MCG TABLET 75 MCG PO (05:10)
[2025-08-11] MEDS: HEPARIN SOD INJ 5000 UNIT/ML VIAL SC ×3 (05:10→21:05)
[2025-08-11 05:58] LABS: Basophils # (Auto) 0.0 Thou/mm3 (0.0-0.2); Basophils % (Auto) 0 % (0-2.5); Eosinophils # (Auto) 0.0 Thou/mm3 (0.0-0.5); Eosinophils % (Auto) 0 % (0-10); Hematocrit 37.1 % (41.0-53.0); Hemoglobin 12.4 g/dL (13.5-16.0); Immature Granulocytes Auto 0.01 Thou/mm3 (0.00-0.00); Lymphocytes # (Auto) 1.0 Thou/mm3 (1.0-4.8); Lymphocytes % (Auto) 11 % (10-50); Mean Corpuscular HGB Conc 33.4 g/dl (31.0-37.0); Mean Corpuscular Hemoglobin 28.5 pg (25.0-35.0); Mean Corpuscular Volume 85 fL (80-100); Monocytes # (Auto) 1.1 Thou/mm3 (0.0-0.8); Monocytes % (Auto) 13 % (0-12); Neutrophils # (Auto) 6.4 Thou/mm3 (1.8-7.7); Neutrophils % (Auto) 75 % (37-80); Nucleated Red Blood Cell # 0.00 Thou/mm3 (0.00-0.00); Nucleated Red Blood Cell % 0 /100 WBC (0); Platelet Count 298 Thou/mm3 (140-440); RDW Standard Deviation 45.7 fL (35.1-43.9); Red Blood Count 4.35 Miln/mm3 (4.50-5.90); White Blood Count 8.5 Thou/mm3 (3.8-10.6)
[2025-08-11 06:37] LABS: Glucose Estimated Average 151 mg/dL (80-131); Hemoglobin A1C 6.9 % Hgb (4.8-6.0)
[2025-08-11 06:44] LABS: Alanine Aminotransferase 12 U/L (10-49); Albumin, Serum 4.5 gm/dL (3.4-4.8); Albumin/Globulin Ratio 1.4 (1.2-2.2); Alkaline Phosphatase 71 U/L (46-116); Anion Gap 8 (7-16); Aspartate Amino Transferase 18 U/L (0-34); BUN/Creatinine Ratio 28 Ratio (12-20); Bilirubin,Total 0.4 mg/dL (0.3-1.2); Blood Urea Nitrogen 22 mg/dL (9-23); Calcium 9.7 mg/dL (8.3-10.6); Calcium (Corrected) 9.7 mg/dL (8.5-10.1); Carbon Dioxide 30.1 mMol/L (20.0-31.0); Cardiac Risk Estimate 2.3 RATIO (4.0-6.7); Chloride 101 mMol/L (98-107); Cholesterol 157 mg/dL (132-200); Creatinine (Component) 0.8 mg/dL (0.6-1.3); Estimated Creatinine Clearance 77.4 mL/min (>60); Globulin 3.2 gm/dL (2.3-3.5); Glucose 183 mg/dL (74-106); HDL Cholesterol 69 mg/dL (40-60); LDL Cholesterol,Calculated 72 mg/dL (0-130); Magnesium 2.2 mg/dL (1.6-2.6); Osmolality,Calculated 285 (275-295); Potassium 4.9 mMol/L (3.4-5.1); Sodium 139 mMol/L (136-145); Thyroid Stimulating Hormone 1.95 uIU/mL (0.55-4.78); Total Protein 7.7 gm/dL (5.7-8.2); Triglycerides 78 mg/dL (30-150); eGFR > 60 See Note
[2025-08-11] MEDS: ACETAMINOPHEN 325 MG TABLET 650 MG PO (07:13)
[2025-08-11] MEDS: cefTRIAXone/D5w 1gm IV premix 1 GM/50 ML BAG IV (08:45)
[2025-08-11] MEDS: LOSARTAN POTASSIUM 25 MG TABLET PO (08:46)
[2025-08-11] MEDS: BUDESONIDE RT 0.25 MG/2 ML NEBU INH ×2 (10:11→19:10)
[2025-08-11] MEDS: guaiFENesin SYRUP 200 MG/10 ML UDC PO ×3 (11:40→20:38)
[2025-08-11] MEDS: INSULIN LISPRO (AdmeLOG) 1 UNIT/0.01 ML UNIT SC ×2 (11:41→16:56)
--- NOTE | 2025-08-11 13:29 | ESPR_ITS ---
<Statement entered by Ethan Vasquez MD - 08/11/25 16:52> I saw and examined patient personally and supervised PGY 1 resident, Dr. Winslow with formulating a management plan. I agree with the documentation as listed below. Plan of care discussed with Attending Dr. Kyler Vasquez MD PGY 2 Disclaimer: This note was dictated by speech recognition. Minor errors in manager social may be present due to voice recognition software. Documentation for date of: 08/11/25 Subjective Subjective Interval history: Overnight, patient received trazodone for sleep. Patient seen and examined at bedside with family. Niece at bedside endorses that patient has anxiety and patient requests medication, ordered hydroxyzine 25 mg x 1. Patient reports improved breathing however still slightly short of breath. VSS, saturating 96% 2 L. Labs are stable, RSV negative blood cultures negative at 24 hours, cocci pending. Continue azithromycin and ceftriaxone, prednisone, breathing treatments. Ordered guaifenesin, Acapella device and incentive spirometer. Restarted home gabapentin 600 mg 3 times daily and statin. Anticipate discharge in the next 24 to 48 hours with improvement of O2 requirement. Exam Vital Signs Temp Pulse Resp BP Pulse Ox O2 Del Method O2 Flow Rate 98.0 F 86 17 113/76 97 Nasal Cannula 2 08/11/25 12:00 08/11/25 12:00 08/11/25 12:00 08/11/25 12:00 08/11/25 12:00 08/11/25 12:00 08/11/25 12:00 Narrative Exam GENERAL: AOx3, no acute distress, Micronesian speaking HEENT: mucous membranes moist, bilateral sclera anicteric CARDIOVASCULAR: regular rhythm and rate, S1/S2 present, no murmurs appreciated PULMONARY: inspiratory and expiratory wheezes bilaterally improved ABDOMINAL: soft, non-tender, non-distended, no rebound/guarding, bowel sounds present EXTREMITIES: no peripheral edema SKIN: warm and dry, intact, no rashes NEURO: CN II-XII grossly intact, no focal deficits, alert, following commands Objective Labs 08/11/25 04:57 08/11/25 04:57 Labs: Laboratory Results - last 24 hr 08/10/25 08/11/25 21:15 04:57 WBC 8.5 RBC 4.35 L Hgb 12.4 L Hct 37.1 L MCV 85 MCH 28.5 MCHC 33.4 RDW Std Deviation 45.7 H Plt Count 298 Neut % (Auto) 75 Lymph % (Auto) 11 [place] % (Auto) 13 H Eos % (Auto) 0 Baso % (Auto) 0 Neut # (Auto) 6.4 Lymph # (Auto) 1.0 [place] # (Auto) 1.1 H Eos # (Auto) 0.0 Baso # (Auto) 0.0 Immature Gran # (Auto) 0.01 H Absolute Nucleated RBC 0.00 Immature Gran % 0 Nucleated RBC % 0 Sodium 139 Potassium 4.9 Chloride 101 Carbon Dioxide 30.1 Anion Gap 8 BUN 22 Creatinine 0.8 Estim Creat Clear Calc 77.4 eGFR > 60 BUN/Creatinine Ratio 28 H Glucose [address] Glu mg/dL 151 H Hemoglobin A1c 6.9 H Calculated Osmolality 285 Calcium 9.7 Corrected Calcium 9.7 Magnesium 2.2 Total Bilirubin 0.4 AST 18 ALT 12 Alkaline Phosphatase 71 Total Protein 7.7 Albumin 4.5 Globulin 3.2 Albumin/Globulin Ratio 1.4 Triglycerides 78 Cholesterol 157 LDL Cholesterol, Calc 72 HDL Cholesterol 69 H Cholesterol/HDL Ratio 2.3 L TSH 1.95 RSV Rapid Negative Quality Measures Quality Measures VTE prophylaxis Assessment & Plan Assessment Current Active Medications: Generic Name Dose Route Start Last Admin Trade Name Freq PRN Reason Stop Dose Admin Acetaminophen 650 mg 08/10/25 14:21 08/11/25 07:13 Acetaminophen 325 Mg Tablet PO 09/09/25 14:20 650 mg Q6H PRN Administration Fever >100.4 or pain Albuterol/Ipratropium 3 ml 08/10/25 15:00 08/11/25 10:11 Albuterol/Ipratropium (Duoneb) Rt Carley 3 Ml Nebu INH 09/09/25 14:59 3 ml Q4HRRT ANGI Administration Albuterol/Ipratropium 3 ml 08/10/25 14:21 Albuterol/Ipratropium (Duoneb) Rt Carley 3 Ml Nebu INH 09/09/25 14:20 Q2HR PRN SHORTNESS OF BREATH OR WHEEZE Atorvastatin Calcium 20 mg 08/11/25 21:00 Atorvastatin Calcium 20 Mg Tablet PO 09/10/25 20:59 HS ANGI Budesonide 0.25 mg 08/11/25 07:00 08/11/25 10:11 Budesonide Rt 0.25 Mg/2 Ml Nebu INH 09/10/25 06:59 0.25 mg BIDRT ANGI Administration Dextrose 25 ml 08/10/25 14:27 Dextrose 50%-Water Inj 50 Ml Syringe IV 09/09/25 14:26 Q15MIN PRN BG 50-70 responsive npo pt Dextrose 50 ml 08/10/25 14:27 Dextrose 50%-Water Inj 50 Ml Syringe IV 09/09/25 14:26 Q15MIN PRN BG <50 OR BG <70 & pt unresponsive Gabapentin 600 mg 08/11/25 14:00 Gabapentin 300 Mg Capsule PO 09/10/25 13:59 TID ANGI Glucagon 1 mg 08/10/25 14:27 Glucagon Inj 1 Mg Vial IM Q15MIN PRN BG <70, and no IV access Guaifenesin 200 mg 08/11/25 12:00 08/11/25 11:40 Guaifenesin Syrup 200 Mg/10 Ml Udc PO 09/10/25 11:59 200 mg QID ANGI Administration Protocol Heparin Sodium (Porcine) 5,000 unit 08/10/25 22:00 08/11/25 05:10 Heparin Sod Inj 5000 Unit/Ml Vial SC 08/24/25 21:59 5,000 unit Q8HR ANGI Administration Azithromycin 500 mg/ Sodium 250 mls @ 250 mls/hr 08/11/25 21:00 Chloride IV 08/12/25 20:59 HS ANGI Ceftriaxone Sodium/Dextrose 1 gm in 50 mls @ 100 mls/hr 08/10/25 18:11 08/11/25 08:45 Rocephin/D5w 1gm Iv Premix IV 08/17/25 18:10 100 mls/hr QDAY ANIG Administration Insulin Human Lispro 0 unit 08/10/25 17:00 08/11/25 11:41 Insulin Lispro (Admelog) 1 Unit/0.01 Ml Unit SC 09/09/25 16:59 1 unit AC ANGI Administration Protocol Levothyroxine Sodium 75 mcg 08/11/25 06:00 08/11/25 05:10 Levothyroxine Sodium 25 Mcg Tablet PO 09/10/25 05:59 75 mcg ACBR ANGI Administration Losartan Potassium 25 mg 08/11/25 09:00 08/11/25 08:46 Losartan Potassium 25 Mg Tablet PO 09/10/25 08:59 25 mg QDAY ANGI Administration Melatonin 3 mg 08/11/25 21:00 Melatonin 3 Mg Tablet PO 09/10/25 20:59 HS ANGI Ondansetron HCl 4 mg 08/10/25 14:21 Ondansetron Inj 2 Mg/Ml Inj 2 Ml IVP 09/09/25 14:20 Q6H PRN NAUSEA OR VOMITING Protocol Pantoprazole Sodium 40 mg 08/12/25 09:00 Pantoprazole 40 Mg Tablet PO 09/11/25 08:59 QDAY ANGI Prednisone 40 mg 08/11/25 09:00 08/11/25 08:46 Prednisone 20 Mg Tablet PO 08/17/25 14:26 40 mg QDAY ANGI Administration Sennosides 1 tab 08/10/25 14:21 08/11/25 11:41 Senna Tablet PO 09/09/25 14:20 1 tab QDAY PRN Administration constipation Protocol Plan Matt Perry 65M pmhx significant for NIDDM2, HTN, hypothyroidism and asthma who presents to [facility] ED on 08/10 for 1 week of shortness of breath, admitted for acute asthma exacerbation. #Acute hypoxic respiratory failure 2/ #Acute asthma exacerbation Ddx: asthma exacerbation, CAP, URI Since returning from [place] on 08/04, has had 1 week of asthma exacerbation due to the cold not alleviated by frequent albuterol administrations as well as nebulization. Previously took Qvar however not consistent. On admission, significant wheezes bilaterally. Procal 0.92. CXR neg for PNA. Plan: - DuoNeb q4h angi and q2h prn - Azithromycin 500 mg QD and ceftriaxone 1 g QD (08/10- - Prednisone 40 mg QD (08/11- - Guaifenasin, acapella device and incentive spirometer ordered - Supplemental O2 as needed to keep SpO2 above 90%, wean down as tolerated #NIDDM2 No a1c on file and patient takes glipizide 10 mg QD. Plan: - SSI step 1 - CTM glucose as patient is on steroids as well #Hx of HTN #Hx HLD Takes losartan 25 mg QD and simvastatin 40 mg hs Plan: - Resume home losartan 25 mg QD and simvastatin 40 mg hs #Hypothyroidism Levothyroxine 75 mcg at home. Plan: - Resume home levothyroxine 75 mcg QD. #L sciatica Plan: - Restarted home gabapentin 600 mg TID Hospital management: Lines: PIV Diet: Carb consistent Bowel: Senna prn GI prophylaxis: IV pantop 40 mg QD DVT prophylaxis: heparin 5000u q8h Disposition: tele, tx of asthma exacerbation CODE STATUS: FULL CODE Plan of care discussed with attending Dr. Chávez, and PGY-2 Dr. Vasquez. Hiral Winslow, DO PGY-1 Internal Medicine Attending Provider Attestation/Addendum I have seen and examined the patient. I was physically present for the ivey portions of the services provided including history, physical exam, diagnosis, treatment plans and orders. I agree with assessment and plan of care as documented by residents. Even though this this note was carefully revised there may still be minor errors in manager social due to voice recognition software. Kyung Chávez MD
[2025-08-11] MEDS: GABAPENTIN 300 MG CAPSULE 600 MG PO ×2 (14:01→21:05)
--- NOTE | 2025-08-11 15:24 | PC.SS ---
This is 65-year-old, single, male who presented to the ED due to suffering from SOB. Patient appeared alert and oriented to self, place and situation. Patient verified his address and phone number. Patient reported that he resides with different siblings. Patient is independent, no DME use. Patient does not use O2 at home. Patient assigned his brother, Tevin ([phone]) as his medical decision maker. Patient reported that his PCP is any provider at [facility]. When medically clear, patient will return to Tevin's house.
[2025-08-11 15:42] LABS: Cocci Serology, IgM Negative (Negative)
[2025-08-11] MEDS: MELATONIN 3 MG TABLET PO (20:38)
[2025-08-11] MEDS: AZITHROMYCIN INJ 500 MG in SODIUM CHLORIDE 0.9% 250 ML 250 ML 250 MG IV (20:38)
[2025-08-11] MEDS: ATORVASTATIN CALCIUM 20 MG TABLET PO (20:38)
[2025-08-12] VITALS (13 sets, daily range): BP systolic 98–130; BP diastolic 58–78; PULSE 75–101; RESP 16–21; TEMP 36.1–36.8; O2SAT 92–100
[2025-08-12] MEDS: ALBUTEROL/IPRATROPIUM (Duoneb) RT SOL 3 ML NEBU INH ×5 (03:08→20:08)
[2025-08-12] MEDS: HEPARIN SOD INJ 5000 UNIT/ML VIAL SC (05:03)
[2025-08-12] MEDS: LEVOTHYROXINE SODIUM 25 MCG TABLET 75 MCG PO (05:03)
[2025-08-12] MEDS: GABAPENTIN 300 MG CAPSULE 600 MG PO ×2 (05:03→16:36)
[2025-08-12] MEDS: guaiFENesin SYRUP 200 MG/10 ML UDC PO ×3 (05:03→16:36)
[2025-08-12 06:08] LABS: Basophils # (Auto) 0.0 Thou/mm3 (0.0-0.2); Basophils % (Auto) 0 % (0-2.5); Eosinophils # (Auto) 0.0 Thou/mm3 (0.0-0.5); Eosinophils % (Auto) 0 % (0-10); Hematocrit 36.0 % (41.0-53.0); Hemoglobin 11.6 g/dL (13.5-16.0); Immature Granulocytes Auto 0.02 Thou/mm3 (0.00-0.00); Lymphocytes # (Auto) 1.5 Thou/mm3 (1.0-4.8); Lymphocytes % (Auto) 20 % (10-50); Mean Corpuscular HGB Conc 32.2 g/dl (31.0-37.0); Mean Corpuscular Hemoglobin 28.3 pg (25.0-35.0); Mean Corpuscular Volume 88 fL (80-100); Monocytes # (Auto) 0.8 Thou/mm3 (0.0-0.8); Monocytes % (Auto) 11 % (0-12); Neutrophils # (Auto) 5.0 Thou/mm3 (1.8-7.7); Neutrophils % (Auto) 68 % (37-80); Nucleated Red Blood Cell # 0.00 Thou/mm3 (0.00-0.00); Nucleated Red Blood Cell % 0 /100 WBC (0); Platelet Count 247 Thou/mm3 (140-440); RDW Standard Deviation 47.3 fL (35.1-43.9); Red Blood Count 4.10 Miln/mm3 (4.50-5.90); White Blood Count 7.4 Thou/mm3 (3.8-10.6)
[2025-08-12] MEDS: BUDESONIDE RT 0.25 MG/2 ML NEBU INH (07:28)
[2025-08-12 07:41] LABS: Alanine Aminotransferase 13 U/L (10-49); Albumin, Serum 4.3 gm/dL (3.4-4.8); Albumin/Globulin Ratio 1.4 (1.2-2.2); Alkaline Phosphatase 70 U/L (46-116); Anion Gap 9 (7-16); Aspartate Amino Transferase 17 U/L (0-34); BUN/Creatinine Ratio 29 Ratio (12-20); Bilirubin,Total 0.3 mg/dL (0.3-1.2); Blood Urea Nitrogen 23 mg/dL (9-23); Calcium 9.4 mg/dL (8.3-10.6); Calcium (Corrected) 9.4 mg/dL (8.5-10.1); Carbon Dioxide 29.0 mMol/L (20.0-31.0); Chloride 100 mMol/L (98-107); Creatinine (Component) 0.8 mg/dL (0.6-1.3); Estimated Creatinine Clearance 77.4 mL/min (>60); Globulin 3.1 gm/dL (2.3-3.5); Glucose 174 mg/dL (74-106); Magnesium 2.1 mg/dL (1.6-2.6); Osmolality,Calculated 283 (275-295); Potassium 4.2 mMol/L (3.4-5.1); Sodium 138 mMol/L (136-145); Total Protein 7.4 gm/dL (5.7-8.2); eGFR > 60 See Note
[2025-08-12] MEDS: cefTRIAXone/D5w 1gm IV premix 1 GM/50 ML BAG IV (08:34)
[2025-08-12] MEDS: PANTOPRAZOLE 40 MG TABLET PO (08:35)
[2025-08-12] MEDS: LOSARTAN POTASSIUM 25 MG TABLET PO (08:35)
--- NOTE | 2025-08-12 09:43 | XR_ITS ---
EXAMINATION: AP chest single view TECHNIQUE: AP portable upright chest single view Date and time: August 12, 2025, 10:14 a.m., comparison August 10, 2025 INDICATIONS: Shortness of breath respiratory distress today. FINDINGS: Normal heart size Moderate vascular congestion. Accentuation of the bronchovascular markings. No lobar pneumonia Prominent osteopenia IMPRESSION: Significant accentuation of the bronchovascular markings, consider bronchitis
[2025-08-12] MEDS: INSULIN LISPRO (AdmeLOG) 1 UNIT/0.01 ML UNIT SC ×2 (11:52→16:36)
--- NOTE | 2025-08-12 14:03 | PC.NURSE ---
Pt ambulated without oxygen and stayed at 88% on RA during ambulation pt placed back on O2 and sat down in room due to c/o shortnerss of breath
--- NOTE | 2025-08-12 15:31 | PC.SS ---
SS submitted DME order for O2 on [facility] pending reesponses.
--- NOTE | 2025-08-12 15:42 | PC.NURSE ---
Pt is on 3L NC o2 saturations 95%
--- NOTE | 2025-08-12 17:31 | ESDS_ITS ---
<Statement entered by Ethan Vasquez MD - 08/14/25 07:55> I saw and examined patient personally and supervised PGY 1 resident, Dr. Ordaz with formulating a discharge plan. I agree with the documentation as listed below. Plan of care discussed with Attending Dr. Kyler Vasquez MD PGY 2 Disclaimer: This note was dictated by speech recognition. Minor errors in clin application specialist may be present due to voice recognition software. Planned Discharge Date 08/12/25 DS: Providers Provider Date of admission: 08/10/25 13:31 Primary care physician: Physician No Primary/Family Admitting Provider: Kyung Chávez MD Attending Provider on Admission: yKung Chávez MD Attending Provider on DC: Edita Ordaz DO Discharging Provider: Edita Ordaz DO DS: Diagnosis Problem List Completed Was Problem List Reviewed/Reconciled?: Yes Hospital Course Hospital Course Hospital course: Matt Perry 65M pmhx significant for NIDDM2, HTN, hypothyroidism and asthma who presents to [facility] ED on 08/10 for 1 week of shortness of breath, admitted for acute asthma exacerbation. Patient reported that since returning from [place] on 08/04, patient had 1 week of asthma exacerbation due to the cold not alleviated by frequent albuterol administrations as well as nebulization which were recommended by his PCP. Previously took Qvar however not consistent. On admission, significant wheezes bilaterally. Procal 0.92. CXR neg for PNA. Patient was admitted for acute respiratory failure with hypoxia secondary to asthma exacerbation. EKG showed sinus tachycardia. Chest x-ray revealed significant accentuation of the bronchovascular markings concerning for bronchitis. Started treatment with ceftriaxone, azithromycin, and prednisone 40 mg daily. In addition to DuoNebs every 6 hour along with Pulmicort 0.25 mg twice daily. Patient chronic issues of hypertension, hypothyroid, type 2 diabetes were treated inhospital continuation of his home meds. Patient respiratory status improved markedly, saturating 100% on 1 L via NC. Through the course of his hospital stay, patient remained afebrile, no leukocytosis, or remarkable electrolyte derangements happened. O2 requirements were brought down to home levels. At the time of discharge, patient is medically stable and deemed safe to return to his/her previous state of living. Admission diagnosis: #Acute hypoxic respiratory failure secondary to #Acute asthma exacerbation #NIDDM2 #History of hypertension #History of hyperlipidemia #Hypothyroidism #Left sciatica Discharge instructions: ? We have started you on a new inhaler for your asthma budesonide?formoterol. Take 1 puff twice a day for the next months. Follow-up with your primary doctor to monitor response. ? We have started you on guaifenesin syrup for your cough. ? We have started you on montelukast for your asthma. Take 1 tablet once a day. ? We have started you on pantoprazole. ? We have prescribed 3 more days of steroids to complete your course. Do not take any more often. - You have been started on home oxygen. ? Continue the rest of your home medication as before. - Recommend that you see your PCP for formal Lung function tests. - Follow up with your primary care physician within 1 week of discharge. If you do not have a primary care physician, please follow up with the [facility] Residents clinic ([phone]) ? If you experience any new, worsening or persistent symptoms either call your primary doctor, or dial 911 or present to the emergency department. This case was discussed with my attending physician, Dr. Chávez, and senior resident, Dr Vasuqez. Even though this this note was carefully revised there may still be minor errors in clin application specialist due to voice recognition software. Edita Ordaz, PGY I Status at Discharge Functional status at discharge: independent ambulation Overall status at discharge: patient is back to baseline Time Spent with Patient Time attestation: Total time spent providing and/or coordinating discharge services: 38 minutes Time spent: Greater than 30 minutes Exam Vital Signs Temp Pulse Resp BP Pulse Ox O2 Del Method O2 Flow Rate 98.0 F 89 20 118/75 100 Nasal Cannula 1 08/12/25 12:00 08/12/25 14:58 08/12/25 14:58 08/12/25 08:35 08/12/25 14:58 08/12/25 12:00 08/12/25 14:58 Narrative Exam GENERAL: AOx3, no acute distress, Icelandic speaking HEENT: mucous membranes moist, bilateral sclera anicteric CARDIOVASCULAR: regular rhythm and rate, S1/S2 present, no murmurs appreciated PULMONARY: inspiratory and expiratory wheezes bilaterally improved ABDOMINAL: soft, non-tender, non-distended, no rebound/guarding, bowel sounds present EXTREMITIES: no peripheral edema SKIN: warm and dry, intact, no rashes NEURO: CN II-XII grossly intact, no focal deficits, alert, following commands Discharge Plan Plan Patient Disposition: HOME (Self Care) Patient condition on transfer: Stable and Benefits outweigh risks Care Plan Goals: ? We have started you on a new inhaler for your asthma budesonide?formoterol. Take 1 puff twice a day for the next months. Follow-up with your primary doctor to monitor response. ? We have started you on guaifenesin syrup for your cough. ? We have started you on montelukast for your asthma. Take 1 tablet once a day. ? We have started you on pantoprazole. ? We have prescribed 3 more days of steroids to complete your course. Do not take any more often. - You have been started on home oxygen. ? Continue the rest of your home medication as before. - Recommend that you see your PCP for formal Lung function tests. - Follow up with your primary care physician within 1 week of discharge. If you do not have a primary care physician, please follow up with the [facility] Residents clinic ([phone]) ? If you experience any new, worsening or persistent symptoms either call your primary doctor, or dial 911 or present to the emergency department. Prescriptions/Referrals Prescriptions/Med Rec: New prednisone 20 mg Tablet 40 mg PO QDAY 3 Days Qty: 6 0RF guaifenesin 100 mg/5 mL Liquid 200 mg PO QID 14 Days Qty: 560 0RF pantoprazole 40 mg Tablet,Delayed Release (Dr/Ec) 40 mg PO QDAY 7 Days Qty: 7 0RF montelukast 10 mg Tablet 10 mg PO QPM 30 Days Qty: 30 2RF fluticasone furoate-vilanterol 200-25 mcg/dose blister with device 1 inh inhalation QDAY 30 Days Qty: 60 2RF Continued ipratropium-albuterol 0.5 mg-3 mg(2.5 mg base)/3 mL solution for nebulization 3 ml inhalation Q6H PRN (Reason: shortness of breath) Qty: 180 0RF gabapentin 600 mg tablet 600 mg PO TID Patient Comments: TOME 1 TABLETA POR V A ORAL RAYNA VECES AL D A FOR 30 DAYS losartan 25 mg tablet 25 mg PO QDAY Patient Comments: TOME 1 TABLETA POR V A ORAL TODOS LOS D FOR 90 DAYS simvastatin 40 mg tablet 40 mg PO HS Patient Comments: TOME 1 TABLETA POR V A ORAL TODOS LOS D EN LA NOCHE FOR 90 DAYS glipizide 10 mg tablet 10 mg PO QDAY Patient Comments: TOME MELBA TABLETA POR VIA ORAL A DIARIO EN LA MANANA 30 MINUTOS ANTES DEL DESAYUNO 90 levothyroxine 75 mcg tablet 75 mcg PO QDAY Patient Comments: TOME 1 TABLETA POR V A ORAL TODOS LOS D EN LA MA MARTHA EN EST GENTRY VAC O FOR 90 DAYS Discontinued prednisone 50 mg tablet 50 mg PO QDAY Qty: 7 0RF Referrals: [facility] [Outside] No Primary/Family,Physician [Primary Care Provider] Patient/Caregiver Discharge Instructions Education Materials: Caring for Your Inhaler, Controlling Asthma Triggers: Irritants, Controlling Asthma Triggers ..., Asthma Action Plan, Controlling Asthma Triggers Animals, Asthma Medicine, Controlling Your Asthma, Asthma Trigger Checklist, Asthma and Exercise, Asthma Print Language: Icelandic Stand Alone Forms: Glenda Award Info., Patient Portal Info Letter Discharge Order Discharge Orders: Discharge (Routine); Ordered 08/12/25 Ordered By: Ethan Vasquez Quality Discharge Quality Measures VTE prophylaxis MD Attestestation MD Attestation I have seen and examined the patient. I was physically present for the ivey portions of the services provided including history, physical exam, diagnosis, treatment plans and orders. I agree with assessment and plan of care as documented by residents. Even though this this note was carefully revised there may still be minor errors in clin application specialist due to voice recognition software. Kyung Chávez MD
--- NOTE | 2025-08-12 19:00 | PC.NURSE ---
Report received, pt pending discharge, pt waiting for family to come to explain oxygen and sign paperwork. Pt was educated on how to use oxygen tank and humidifier by day team pt requesting family to get explanation also.
[2025-08-13 14:10] LABS: Cocci Serology, IgG Negative (Negative)
== END 2025-08-12 20:35 | disposition home or self-care (01) | DRG 141 ==
LOC: SERX 11:06 → SERHOLD 14:23 → S3SX 21:45
PROVIDERS: Nurse Practitioner Family; Admitting Provider Student in an Organized Health Care Education/Training Program; Emergency Provider Family Medicine; Visit Provider Student in an Organized Health Care Education/Training Program
DX: J45.901 Unspecified asthma with (acute) exacerbation (principal); J96.01 Acute respiratory failure with hypoxia; E11.9 Type 2 diabetes mellitus without complications; I10 Essential (primary) hypertension; E03.9 Hypothyroidism, unspecified; M54.32 Sciatica, left side; F41.9 Anxiety disorder, unspecified; E78.5 Hyperlipidemia, unspecified; Z79.84 Long term (current) use of oral hypoglycemic drugs; Z79.51 Long term (current) use of inhaled steroids; Z79.899 Other long term (current) drug therapy
CPT/HCPCS: 36415; 71045; 71046; 80053; 80061; 83036; 83605; 83735; 83880; 84145; 84443; 84484; 85025; 86331; 86635; 87077; 87186; 87205; 87502; 87634; 87635; 93005; 93225; 94640; 94644; 94667; 96365; 96372; 99285; A9270; J0131; J0456; J0696; J1644; J1815; J2470; J2919; J3475; J7050; J7512; J7644